=== PATIENT | male | born 1990 | race Caucasian/White ===

== ENCOUNTER 2017-07-19 17:05 | Emergency (ER) | payer OTHER ==
[~2017-07-19] VITALS: Ht 190.5 cm; Wt 106.6 kg
[~2017-07-19 17:05] MED LIST: ACTICIN 5% CREA60 G1 TOP; ADDERALL XR 3030 MG PO; ELIMITE60 GM TOP; PREDNISONE 20 M20 MG PO
[2017-07-19] MEDS ORDERED: STROMECTOL3 MG PO (18:00)
[2017-07-19] MEDS ORDERED: ACTICIN 5% CREA60 G1 TOP (18:00)
[2017-07-19 18:10] VITALS: BP 167/87
== END 2017-07-19 18:11 | disposition home or self-care (01) ==
LOC: M.ERS 17:05
DX: R21 Rash and other nonspecific skin eruption (principal); F31.9 Bipolar disorder, unspecified; F90.9 Attention-deficit hyperactivity disorder, unspecified type